=== PATIENT | male | born 1985 | race Hispanic/Latino ===

== ENCOUNTER 2016-10-01 04:33 | Emergency (ER) | payer OTHER ==
[~2016-10-01] VITALS: Ht 172.7 cm; Wt 113.6 kg
[~2016-10-01 04:33] MED LIST: OXYC-167 PO
[2016-10-01 04:38] VITALS: BP 156/85; RESP 18; O2SAT 97
[2016-10-01] MEDS ORDERED: QUET100T69 PO (04:43)
[2016-10-01] MEDS ORDERED: ALPR1TAB7 PO ×2 (04:43)
[2016-10-01] MEDS ORDERED: PARO40TA3 PO (04:43)
[2016-10-01] MEDS ORDERED: PROP40TA5 PO (04:43)
--- NOTE | 2016-10-01 04:51 | ED.REPORT ---
HPI-Sore Throat ONLY HPI/PE done Oct 01, 2016 ED Provider: Reed Rousseau MD Pt is a 31 year old male with a hx of anxiety presenting to the ED complaining of a sore throat onset yesterday. He states that it feels like he is swallowing glass and that his throat is closing up. He also complains of right facial and ear pain. Denies any other symptoms at this time. Nursing Notes Stated Complaint: FEELS LIKE THROAT IS CLOSING,CANT BREATHE Chief Complaint: ENT & Mouth Nursing Notes Reviewed: Yes Allergies: Coded Allergies: No Known Allergies (Verified Allergy, Unknown, 10/01/16) Scheduled Alprazolam (Alprazolam) 1 Mg Tablet 1 MG PO TID Amoxicillin/Clav K 400-57 mg Susp (Amoxicillin/Clav K 400-57 mg Susp) 400 Mg/5 Ml Susp.recon 10 ML PO BID Oxycodone/APAP-Expunged Drug, Do Not Renew! (Endocet [id number] Drug, Do Not Renew!) 1 Tab Tablet 1-2 TAB PO Q 4-6HRS PRN Paroxetine (Paroxetine) 40 Mg Tablet 40 MG PO DAILY Prednisone (PredniSONE) 20 Mg Tablet 20 MG PO BID Propranolol HCl (Propranolol HCl) 40 Mg Tablet 40 MG PO DAILY Quetiapine Fumarate (Quetiapine Fumarate) 100 Mg Tablet 1 TAB PO HS Scheduled PRN Alprazolam (Alprazolam) 1 Mg Tablet 1 MG PO PRN For Anxiety Hydrocodone/Acetaminophen (Lortab 10 mg-300 mg/15 ml Elxr) 473 Ml Solution 15 ML PO Q4 PRN PRN For Pain General Time Seen by MD: 04:49 Chief Complaint Sore throat Hx Obtained From: Patient Arrived By: Walk-in Onset Occurred: 1 - 15 minutes ago Symptom Duration: Since onset Quality: Painful Severity: Current: Severe Severity: Maximum: Severe Recent Healthcare: No recent doctor visit, No recent hospitalization Similar Sx Previous: No Past Medical History Past Medical History Anxiety Tremors Stutter Reports: Gallbladder disease Past Surgical History none reported Family History noncontributory Smoking History Unknown if Ever Smoker Social History Drug Use: Denies drug use, THC Other Social History: Local resident Ambulatory Status Independent Review of Systems Constitutional: Denies: Fever Ears / Nose / Throat: Reports: Earache right, Sore throat Respiratory: Denies: Shortness of breath GI: Denies: Abdominal pain Complete sys rev & neg: except as marked. Physical Exam Initial Vital Signs Vital Signs (First) Date Time Temp Pulse Resp B/P Pulse Ox O2 Delivery O2 Flow Rate FiO2 10/01/16 04:38 36.9 109 18 156/85 97 Room Air Initial VS: Reviewed Head / Eyes: Atraumatic, Normocephalic, PERRL Respiratory: Breath sounds normal, Clear to auscultation, No respiratory distress Cardiovascular: Regular rate & rhythm, Heart sounds normal, Intact distal pulses Abdomen / GI: Soft, Non-tender, No guarding, No rebound, No distention Extremities: Vascular intact, Neuro intact, No swelling, No tenderness Skin: Warm, Dry, No cyanosis Neurologic: Alert, Oriented, Nonfocal Psychiatric: Mood/affect normal, Behavior normal, Normal thought content General/Constitutional: Awake, Alert Distress / Hydration: Positive: Distress moderate ENT: Atraumatic, Airway patent, Mucous membranes moist Right greater than left tonsillar swelling and exudate. Right TM dull, thickened, not red. Left TM normal. Swollen lymph nodes. Re-Eval/Medical Decision Med Decision/Clinical Course 31-year-old male with right otitis media and tonsillopharyngitis. He has trouble swallowing pills so was given liquid Augmentin, liquid hydrocodone elixir, and he will question the prednisone pills. Re-Evaluation/Progress : Time of Eval: 05:00 Patient Status: Condition improved Re-Evaluation/Progress Note: Discussed plan for discharge. Pt understands and agrees with plan. Counseled Regarding: Diagnosis, Lab results, Need for follow-up, When/why to return to ED Discharge & Departure Primary Impression: Tonsillopharyngitis Disposition: Home Discharge Condition All VS Reviewed: Yes Condition: Improved Patient Instructions: Tonsillitis (ED) Additional Instructions: Augmentin suspension, 2 teaspoons twice a day, prepack dispensed and an additional prescription written for the remainder. Hydrocodone elixir, 3 teaspoons every 6 hours as needed for pain, prepack dispensed an additional prescription written for the remainder. Prednisone 20 mg by mouth twice a day, #1 given in the ER and #10 additional prescription given Referrals: Sean Felton MD (PCP) Scribe Attestation Portions of this note were transcribed by Deneen Zamarripa. I, Dr. Rousseau personally performed the history, physical exam and medical decision-making; I reviewed and confirmed the accuracy of the information in the transcribed note. Signed by: Luiza Trejo, 10/01/2016 at 0510. copies to: Sean Felton MD, Howard L MD Oct 01, 2016 04:51 DENEEN ZAMARRIPA Oct 01, 2016 04:59
[2016-10-01] MEDS ORDERED: Dexamethasone 20 mg/2 mL Oral Solution PO ONE (05:00)
[2016-10-01] MEDS ORDERED: _HYDROcodone-APAP 7.5-325/15mL 1 mL Bottle PO PRN (05:00)
[2016-10-01] MEDS ORDERED: AMOX400S7 PO (05:02)
[2016-10-01] MEDS ORDERED: HYDR473S48 PO (05:02)
[2016-10-01] MEDS ORDERED: PRE20 PO (05:03)
[2016-10-01] MEDS ORDERED: _Amoxicillin-Clavulanate 400-57 mg/5 mL Susp PO SCH (08:30)
== END 2016-10-01 05:20 | disposition home or self-care (01) ==
LOC: SED 04:33
DX: J03.90 Acute tonsillitis, unspecified (principal); Z79.899 Other long term (current) drug therapy